=== PATIENT | male | born 1940 | race Caucasian/White ===

== ENCOUNTER → 2017-10-13 11:59 | Outpatient (CLI) | payer MEDICARE, OTHER, SELFPAY ==
[2017-10-13 14:24] LABS: PSA,Total- Diagnostic 0.73 ng/mL (0.0-4.0)
== END ==
PROVIDERS: Family Provider Family Medicine; PCP Family Medicine; Visit Provider Urology
DX: C61 Malignant neoplasm of prostate (principal)
CPT/HCPCS: 36415; 84153

== ENCOUNTER → 2018-04-22 12:33 | Outpatient (CLI) | payer MEDICARE, OTHER, SELFPAY ==
[2018-04-22 14:09] LABS: PSA,Total- Diagnostic 0.69 ng/mL (0.0-4.0)
== END ==
PROVIDERS: Family Provider Family Medicine; PCP Family Medicine; Referring Provider Urology; Visit Provider Urology
DX: C61 Malignant neoplasm of prostate (principal)
CPT/HCPCS: 36415; 84153

== ENCOUNTER → 2018-09-16 | Outpatient (CLI) | payer MEDICARE, OTHER, SELFPAY ==
[2018-09-16 08:33] VITALS: BMI 29.2
--- NOTE | 2018-09-16 08:43 | RAD_ITS ---
STUDY: X-RAY - RIGHT SHOULDER REASON FOR EXAM: Male, 78 years old. Shoulder joint pain after pulling lawnmower starter. TECHNIQUE: 3 view(s) of the shoulder. COMPARISON: None. FINDINGS: Normal glenohumeral articulation. Normal acromioclavicular joint. Normal acromion. Normal humeral head and visualized proximal humerus. The soft tissue structures are unremarkable. Normal visualized pulmonary apex. RAD/Shoulder min 2 Views IMPRESSION: Normal x-ray examination of the right shoulder. Electronically Signed: Sanchez Hernandez MD at 16:02 EDT , Service support ,
== END | disposition home or self-care (01) ==
PROVIDERS: Family Provider Family Medicine; PCP Family Medicine; Referring Provider Orthopaedic Surgery; Visit Provider Orthopaedic Surgery
DX: S49.91XA Unspecified injury of right shoulder and upper arm, initial encounter (principal)
CPT/HCPCS: 73030

== ENCOUNTER 2018-10-14 09:00 | Outpatient (RCR) | payer MEDICARE, OTHER, SELFPAY ==
[2018-09-16 08:33] VITALS: BMI 29.2
--- NOTE | 2018-09-25 12:55 | HP.PTEVAL ---
Patient's Visit Information SEGUNDO LORD is a 78 year old M referred to Physical Therapy by Vickey Brar DO with a diagnosis of RTC STRAIN RIGHT SHOULDER. Date of Evaluation: 09/25/18 Physical Therapist: Aleksandar Lyon PT, Cert MDT, OCS - Visit Plan Frequency: 1-2x /Week Duration: 3 Weeks Plan: RECHECK HEP 3 WEEKS. INTERVETIONS RTC/SCAPULAR STRENGTHENING,HEP AND APPROPRIATE GYM EX'S - Subjective Findings: This 78 y/o male presents to physical therapy with right RTC strain shoulder. 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 Patuinet felt some pain which progressively worse . Pateint seen DR Brar September 16 did x-rays and gave corizine injection helped pain. Global shoulder laterl/posterior deltoid. Patient affects ability with ADL'S ,OH abive 90 degrees and housework tasks. Pateint sleeping okay at night. Denies parathesia/tingling. Patient condition affects QOL and function. SOCAIL: marrie. VOCATION: retired - Pain Right Shoulder Pain Intensity (Out of 10): 1 Pain Intensity Range: 10 - Objective POSTURE: mild foward posture. PALAPTION: unremarkable. NEURO: intact. AROM: shoulder flexion/abduction 170 degrees,ER 90 degrees ,IR T6. MMT: RTC 4/5,deltoid 4/5 ,scapular 3+/5 - Special Tests R Shoulder Lift Off Test - Subscapular Tear: Negative R Shoulder Drop Sign - IS Test: Negative R Shoulder Empty Can - SS: Negative R Shoulder Neer - Impingement: Negative R Shoulder Eddy Fitz - Impingement: Negative - Goals Goal 1:: Independant with HEP Goal Time Frame: 2-4 Weeks Goal 2:: Patient to improve ability with ADL'S and housework tasks above 90 degrees for functio n. Goal Time Frame: 2-4 Weeks Goal 3:: Patient to improve shoulder dash disability score by 5 point to improve QOL. Goal Time Frame: 2-4 Weeks - Rehabilitation Potential Physical Therapy Diagnosis: This patient has right shoulder strain impairs function with OH activities. Rehabilitation Potential: Good - Anticipated Interventions Patient/Client Instruction: Educate patient on: Condition, Plan of Care For the Purpose of:: To decrease pain, To increase ROM, To improve muscle performance and motor function, To improve ability of physical actions for home/community/work/leisure, To increase flexibility/ROM, To improve ability to perform tasks related to life management Therapeutic Exercise to Include: Strength training, Postural training, Flexibilty training, Scapular Strength/Stabilization Comment: RTC For the Purpose of:: To decrease pain, To improve muscle performance and motor function, To improve ability to perform ADL's, To increase tolerance to activity/condition/position, To improve ability of physical actions for home/community/work/leisure, To decrease soft tissue restriction, To reduce risk of recurrence Thank you for the opportunity to evaluate your patient. For Medicare and Medicare HMO plans, please review the plan of care and approve it. It will need to be FAXED BACK to us at [phone] for Medicare purposes. For Medicare only, by signing this I certify the plan of care. Please let me know if there are questions or concerns regarding this plan of care. Physician Signature: Date:
--- NOTE | 2018-12-16 15:29 | HP.PTDCSUM ---
HP - PT D/C Summary It has been my pleasure to treat SEGUNDO LORD under orders from Vickey Brar DO, for the diagnosis of RTC STRAIN RIGHT SHOULDER for a total of 2 visit(s). Discharge Date: 10/14/18 Please see the following information for a summary of their discharge status. - Subjective Subjective: Slight soreness ,but doing good - Pain Right Shoulder Pain Intensity (Out of 10): 1 - Overall Improvement % Improvement: 90 - Objective Objective/Function: AROM :Shoulder flexion 160/abd 160. MMT: RTC 4/5,DELTOIS 4/5 - Goals Goal 1:: Independant with HEP Goal Progress: Goal Met Goal 2:: Patient to improve ability with ADL'S and housework tasks above 90 degrees for functio n. Goal Progress: Goal Met Goal 3:: Patient to improve shoulder dash disability score by 5 point to improve QOL. Goal Progress: Goal Met Goal Progress: Goal Met Goal Progress: Goal Met - Plan Plan: D/C TO HOME - D/C Information If there are questions or concerns regarding this patient's physical therapy, please feel free to call me at [phone]. Thank you for the referral of this patient. Sincerely, Aleksandar Lyon, PT, Cert MDT, OCS
== END 2018-10-14 19:00 | disposition home or self-care (01) ==
LOC: PT 09:00
PROVIDERS: Family Provider Family Medicine; PCP Family Medicine; Referring Provider Orthopaedic Surgery; Visit Provider Orthopaedic Surgery
DX: S46.011D Strain of muscle(s) and tendon(s) of the rotator cuff of right shoulder, subsequent encounter (principal)
CPT/HCPCS: 97110; 97162

== ENCOUNTER → 2018-10-19 | Outpatient (CLI) | payer MEDICARE, OTHER, SELFPAY ==
[2018-09-16 08:33] VITALS: BMI 29.2
[2018-10-19 12:47] LABS: PSA,Total- Diagnostic 0.72 ng/mL (0.0-4.0)
== END | disposition home or self-care (01) ==
LOC: MTLAB 09:53
PROVIDERS: Family Provider Family Medicine; PCP Family Medicine; Referring Provider Urology; Visit Provider Urology
DX: C61 Malignant neoplasm of prostate (principal)
CPT/HCPCS: 36415; 84153

== ENCOUNTER 2019-02-09 21:04 | Emergency (ER) | payer MEDICARE, OTHER, SELFPAY ==
[2018-09-16 08:33] VITALS: BMI 29.2
[2019-02-09 21:05] VITALS: BP 147/87; PULSE 59; RESP 17; TEMP 36.3; O2SAT 94; BMI 30.1
--- NOTE | 2019-02-09 21:13 | EKG12_ITS ---
Test Reason : DYSRHYTHMIA Blood Pressure : / mmHG Vent. Rate : 053 BPM Atrial Rate : 237 BPM P-R Int : 000 ms QRS Dur : 126 ms QT Int : 436 ms P-R-T Axes : 085 -12 138 degrees QTc Int : 409 ms Atrial flutter with variable A-V block with premature ventricular or aberrantly conducted complexes Non-specific intra-ventricular conduction block T wave abnormality, consider lateral ischemia Abnormal ECG Confirmed by STEWART REYES, RUDDY ([id number]), publication editor NELL TAVAREZ ([id number]) on 02/10/2019 11:07:58 AM Referred By: JORDANA Confirmed By:RUDDY WILLIAM MD
[2019-02-09 21:27] LABS: Absolute Lymphocyte Count 0.83 X10^3/uL (0.83-4.51); Basophil# 0.03 X10^3/uL; Basophil% 0.5 % (0-1); Eosinophil# 0.13 X10^3/uL; Eosinophils% 2.3 % (0-5); Hematocrit 45.7 % (40-54); Hemoglobin 15.1 g/dL (13.0-16.5); Lymphocyte # 0.83 X10^3/ul (4.0); Lymphocyte % 14.8 % (19-41); Mean Corpuscular Hgb 30.3 pg (27.0-32.0); Mean Corpuscular Volume 91.6 fL (80-94); Mean Platelet Vol. 9.4 fl (6.2-12.0); Monocyte# 0.53 X10^3/uL; Monocyte% 9.5 % (0-10); NRBC Flagged by Analyzer 0 % (0-5); Neutrophil # 4.04 X10^3/uL (2.7-7.7); Neutrophil % 72.4 % (47-70); Platelet Count 201 K/mm3 (150-450); RBC Distribution Width CV 13.4 % (11.6-14.6); RBC Distribution Width SD 44.6 fl (35.1-43.9); Red Blood Count 4.99 M/mm3 (4.6-6.2); White Blood Count 5.6 K/mm3 (4.4-11.0)
[2019-02-09 21:35] VITALS: BP 156/75; BP 159/80; BP 164/78; PULSE 58; PULSE 69; PULSE 89
[2019-02-09 21:35] LABS: International Normalized Ratio 2.4; Prothrombin Time (Protime)PT. 26.1 SECONDS (11.7-14.9)
--- NOTE | 2019-02-09 21:35 | RAD_ITS ---
STUDY: X-RAY CHEST REASON FOR EXAM: Male, 79 years old. Short of breath TECHNIQUE: AP portable COMPARISON: June 15, 2015 FINDINGS: There is minor subsegmental atelectasis or scarring in left lower lobe.. There is no demonstrated pleural abnormality. Postop changes status post median sternotomy and CABG. Normal size heart. Normal mediastinum and cheikh. Normal visualized pulmonary arteries. Tortuous mildly calcified aortic arch and descending thoracic aorta. Dorsal spine demonstrates degenerative change. Normal visualized ribs, clavicles, and shoulders. There is no demonstrated abnormality of the visualized soft tissue structures of the upper abdomen. No significant change since prior exam RAD/Chest 1 View (Portable) IMPRESSION: ASHD. No acute cardiopulmonary pathology Electronically Signed: Ashvin Hogan MD at 22:03 EST , Service support ,
[2019-02-09] MEDS: 0.9% Normal Saline 1,000 ML 1000 ML IV (21:38)
--- NOTE | 2019-02-09 21:49 | EKG12_ITS ---
Test Reason : DYSRHYTHMIA Blood Pressure : / mmHG Vent. Rate : 059 BPM Atrial Rate : 234 BPM P-R Int : 000 ms QRS Dur : 130 ms QT Int : 432 ms P-R-T Axes : 265 -15 158 degrees QTc Int : 427 ms Atrial flutter with variable A-V block with premature ventricular or aberrantly conducted complexes Non-specific intra-ventricular conduction block T wave abnormality, consider inferolateral ischemia Abnormal ECG Confirmed by STEWART REYES, RUDDY ([id number]), video effects editor NELL TAVAREZ ([id number]) on 02/10/2019 11:22:26 AM Referred By: JORDANA Confirmed By:RUDDY WILLIAM MD
[2019-02-09 21:50] LABS: ALB/GLOB Ratio 1.2 RATIO (0.9-2.4); AST(SGOT) 20 U/L (15-37); Alanine Aminotransfer ALT/SGPT 27 U/L (16-61); Albumin, Serum 3.7 g/dL (3.2-5.0); Alkaline Phosphatase 91 U/L (45-117); Anion Gap 5 (5-15); BUN 23 mg/dL (7-18); BUN/Creat Ratio 19.7 RATIO (10-20); Calcium,Total 8.4 mg/dL (8.5-10.1); Chloride 112 mmol/L (98-107); Creatinine, Serum 1.17 mg/dL (0.70-1.30); EST Glomerular Filtration Rate 64 mL/min (>60); Est Glom Filt Rate - Afr Amer 78 mL/min (>60); Estimated Creatinine Clearance 53.73 ml/min; Globulin 3.1 g/dL (2.2-4.2); Glucose 141 mg/dL (74-106); Potassium 4.1 mmol/L (3.5-5.1); Protein, Total 6.8 g/dL (6.4-8.2); Sodium Level 142 mmol/L (136-145)
--- NOTE | 2019-02-09 21:54 | ED.DCSUM_ITS ---
History of Present Illness Chief Complaint: Dizziness Informant: Patient Onset: Today Context: Gradual Onset Timing: Intermittent Current Severity: Mild Maximum Severity: Mild Narrative: The patient is a 79-year-old male with history of coronary vascular disease status post CABG, chronic atrial flutter who is on Coumadin, and hypertension who presents to the emergency department with wooziness. Patient states he was in his normal state of health. He states he felt mildly lightheaded and felt like he cannot get his pulse in his wrist. He states normally he can. He denies chest pain or shortness of breath. He did not feel like he was going to pass out. He is not nauseated. He denies any exertional dyspnea or exertional chest pain. He states he is been compliant with all of his medications. He is otherwise been in his normal state of health. Prior similar symptoms: No Recent Illness/Hospitalization: No Past Medical History - Allergies and Home Meds Allergies/Adverse Reactions: Allergies Sulfa (Sulfonamide Antibiotics) Allergy (Verified 02/09/19 21:04) Rash Primary Care Physician: Grabiel Rosen MD [Primary Care Provider] - Prior records reviewed: Yes Past Medical History: - - Atrial flutter, coronary vascular disease Surgical History: coronary bypass surgery Smoking Status: Never smoker - Family History Maternal Family History: Reports: No pertinent history Review of Systems General: Denies: Chills, Fever, Sweats Eyes: Denies: Visual changes - bilaterally, Diplopia ENT: Denies: Rhinorrhea, Sore throat Cardiovascular: Denies: Chest pain, Palpitations Respiratory: Denies: Dyspnea, Cough, Dyspnea on exertion Gastrointestinal: Denies: Abdominal pain, Nausea, Vomiting, Diarrhea, Melena, Hematochezia Genitourinary: Denies: Dysuria, Hematuria, Frequency Musculoskeletal: Denies: Back pain, Extremity Pain Skin: Denies: Rash, Wounds Neurological: Denies: Headache, Weakness, Numbness Physical Exam Vital Signs/Narrative: Vital Signs Temp Pulse Pulse Pulse Pulse Resp BP 02/09/19 21:35 58 L 89 69 02/09/19 21:05 97.3 F L 59 L 17 147/87 H BP BP BP Pulse Ox 02/09/19 21:35 156/75 H 164/78 H 159/80 H 02/09/19 21:05 94 Inital Vital Signs reviewed: Yes General: Well nourished, Well developed, No Acute Distress Head: Normocephalic, Atraumatic Eyes: Perrl, EOMI ENT: Moist mucous membranes, No rhinorrhea Neck: Supple, Nontender Cardiovascular: Regular rate, Regular rhythm, No murmurs Respiratory: No distress, CTA bilaterally, Chest nontender Abdomen: Soft, Nontender, Nondistended, Normal bowel sounds Back: Nontender, Normal Inspection Extremities: Nontender, No edema Skin: Normal color, No rash Neurological: Alert, Oriented x3, Cranial nerves II-XII grossly intact, Normal Strength, Normal Sensation Psychological: Normal affect, Normal Mood Diagnostic/Tx/Re-eval Clinical Impression(s) from Imaging Studies Chest X-Ray 02/09/19 21:35 IMPRESSION: ASHD. No acute cardiopulmonary pathology Electronically Signed: Ashvin Hogan MD at 22:03 EST , Service support , Abnormal Lab Results 02/09/19 02/09/19 21:20 21:20 WBC 5.6 RBC 4.99 Hgb 15.1 Hct 45.7 MCV 91.6 MCH 30.3 MCHC 33.0 RDW Std Deviation 44.6 H RDW Coeff of Brenden 13.4 Plt Count 201 MPV 9.4 Immature Gran % (Auto) 0.500 Neut % (Auto) 72.4 H Lymph % (Auto) 14.8 L [place] % (Auto) 9.5 Eos % (Auto) 2.3 Baso % (Auto) 0.5 Absolute Neuts (auto) 4.0 Absolute Lymphs (auto) 0.83 Nucleated RBC % 0 Sodium 142 Potassium 4.1 Chloride 112 H Carbon Dioxide 25.0 Anion Gap 5 BUN 23 H Creatinine 1.17 Estim Creat Clear Calc 53.73 Est GFR (MDRD) Af Amer 78 Est GFR (MDRD) Non-Af 64 BUN/Creatinine Ratio 19.7 Glucose 141 H Calcium 8.4 L Total Bilirubin 0.30 AST 20 ALT 27 Alkaline Phosphatase 91 Total Protein 6.8 Albumin 3.7 Globulin 3.1 Albumin/Globulin Ratio 1.2 - Rhythm Strip Rhythm Strip: Flutter Rate: 50 Ectopy: PVC(s) - EKG Initial EKG Interpretation: No Acute Injury Pattern, Atrial Flutter Prior: Unchanged - Medical Decision Making The patient presents to the emergency department with wooziness. He states that he was concerned because he cannot feel his pulse. I asked him to take his pulse and his radial wrist. He states that he felt back to normal. The patient does have a history of atrial flutter with intermittent conduction. He thinks that he is in it all the time, but he was actually admitted in 2016 because he was bradycardic. He was transferred to [facility], but with medication titration he was discharged home without a pacemaker. He came back a month later and had cardioversion states he has been doing fine since. He does follow with cardiology at [place]. He denies any recent medication changes. 2 EKGs were completed which showed atrial flutter with intermittent conduction. This does appear similar to his prior EKGs both here and through the [facility] system. He is not bradycardic. He is not hypotensive. I do not feel like this is the cause of his symptoms. With a small bolus of fluids, the patient states he feels back to normal. His chest x-ray does not show significant volume overload. Lab work is otherwise unremarkable. He ambulated without any bradycardia or lightheadedness. At this point, I do not suspect a dangerous cause of his symptoms. I do feel that he is safe for outpatient follow-up. Impression 1. Lightheadedness-resolved ED Disposition - Plan for ED Patient: Instructions: DIZZINESS, Unk Cause Referrals: Grabiel Rosen MD [Primary Care Provider] -
[2019-02-09 22:45] VITALS: BP 140/78; PULSE 50; RESP 17; O2SAT 94
== END 2019-02-09 22:46 | disposition home or self-care (01) ==
LOC: ED 21:25
PROVIDERS: Emergency Provider Emergency Medicine; Family Provider Family Medicine; PCP Family Medicine
DX: R42 Dizziness and giddiness (principal); I49.3 Ventricular premature depolarization; I48.92 Unspecified atrial flutter; I25.10 Atherosclerotic heart disease of native coronary artery without angina pectoris; I10 Essential (primary) hypertension; Z95.1 Presence of aortocoronary bypass graft; Z79.01 Long term (current) use of anticoagulants; Z79.899 Other long term (current) drug therapy
CPT/HCPCS: 71045; 80053; 85025; 85610; 93005; 96360; 99285; A4216

== ENCOUNTER → 2019-04-22 09:50 | Outpatient (CLI) | payer MEDICARE, OTHER, SELFPAY ==
[2019-04-22 12:55] LABS: PSA,Total- Diagnostic 0.53 ng/mL (0.0-4.0)
== END ==
PROVIDERS: PCP Family Medicine; Referring Provider Urology; Visit Provider Urology
DX: R97.20 Elevated prostate specific antigen [PSA] (principal)
CPT/HCPCS: 36415; 84153

== ENCOUNTER → 2020-05-08 08:22 | Outpatient (CLI) | payer MEDICARE, OTHER, SELFPAY ==
[2020-05-08 10:33] LABS: PSA,Total- Diagnostic 0.82 ng/mL (0.0-4.0)
== END ==
PROVIDERS: PCP Family Medicine; Referring Provider Urology; Visit Provider Urology
DX: C61 Malignant neoplasm of prostate (principal)
CPT/HCPCS: 36415; 84153

== ENCOUNTER 2020-09-27 10:23 | Emergency (ER) | payer MEDICARE, OTHER, SELFPAY ==
[2020-09-27] VITALS (8 sets, daily range): BP systolic 115–131; BP diastolic 55–64; PULSE 40–61; RESP 12–169; TEMP 35.6–36.1; O2SAT 91–98; BMI 28.9
--- NOTE | 2020-09-27 10:26 | EKG12_ITS ---
Test Reason : Blood Pressure : / mmHG Vent. Rate : 054 BPM Atrial Rate : 081 BPM P-R Int : 000 ms QRS Dur : 130 ms QT Int : 470 ms P-R-T Axes : 012 010 111 degrees QTc Int : 445 ms Sinus rhythm with 2nd degree A-V block (Mobitz I) Non-specific intra-ventricular conduction block T wave abnormality, consider lateral ischemia Abnormal ECG Confirmed by KATHY REYES, RITIKA ([id number]), purchase request editor MATTHEW ESCALONA ([id number]) on 10/02/2020 8:55:40 AM Referred By: DANITA Confirmed By:THOMAS CHAVEZ MD
--- NOTE | 2020-09-27 10:28 | EKG12_ITS ---
Test Reason : POST ARREST Blood Pressure : / mmHG Vent. Rate : 063 BPM Atrial Rate : 081 BPM P-R Int : 000 ms QRS Dur : 130 ms QT Int : 418 ms P-R-T Axes : 039 019 113 degrees QTc Int : 427 ms Sinus rhythm with 2nd degree A-V block (Mobitz I) Non-specific intra-ventricular conduction block Nonspecific ST-T changes Abnormal ECG Confirmed by KATHY REYES, RITIKA ([id number]), newspaper editor MATTHEW ESCALONA ([id number]) on 10/02/2020 8:56:44 AM Referred By: DANITA Confirmed By:THOMAS CHAVEZ MD
--- NOTE | 2020-09-27 10:29 | EX.ED.CRITCA ---
HPI History of Present Illness Chief Complaint: CPR Informant: patient and EMS Limited: other (Pain recalls sitting on a weight machine and then did not feel well.) Onset/Context/Timing Onset: Hours Context: Sudden Onset Timing: Intermittent Quality: Unresponsive with shockable rhythm Location: [facility] Mechanism/Context: Yes other Current Severity: Gone Maximum Severity: Severe Worsened by: Unknown Relieved by: Cardioversion/defibrillation Associated Symptoms Associated Symptoms: abdominal pain, chest pain and chills Length of loss of consciousness: Unknown Narrative Narrative: Patient is an elderly male with history of coronary disease status post three-vessel bypass surgery 20 years ago and history of hypertension, hypercholesterolemia and atrial flutter. He is on Coumadin. Patient states he was at [facility] working out. He works out every day on his own. He states he didn't feel well and he has no other recall. Workers at [facility] initiated protocol for unresponsive patient. Defibrillator was applied. Defibrillator interpret his rhythm and recommended that he be shocked. Upon arrival he is alert oriented with no complaints other than being sweaty. He denies history of PE or DVT. He denies leg pain, swelling discoloration. He has no risk factors for pulmonary embolus. Prior similar symptoms: No Recent Illness/Hospitalization: No PFSH PFS Medical History (Updated 09/27/20 @ 11:[address] Tereso Sauceda MD) Coronary artery disease Hypertension Hypertension Myocardial infarct Home Medications amlodipine 10 mg PO DAILY 06/15/15 [History Last Taken Unknown] atorvastatin 40 mg PO QHS 06/15/15 [History Last Taken Unknown] cholecalciferol (vitamin D3) 2,000 unit PO DAILY 06/15/15 [History Last Taken Unknown] isosorbide mononitrate 30 mg PO BID 06/15/15 [History Last Taken Unknown] lisinopril 40 mg PO DAILY 06/15/15 [History Last Taken Unknown] warfarin 10 mg tablet 10 mg PO SUTUWETHSA tab 09/16/18 [History Last Taken Unknown] warfarin 5 mg PO MOFR 09/27/20 [History Last Taken Unknown] Allergy/AdvReac Type Severity Reaction Status Date / Time Sulfa (Sulfonamide Allergy Rash Verified 09/27/20 10:50 Antibiotics) Social History (Updated 09/27/20 @ 10:[address] Tereso Sauceda MD) household members: none Smoking Status: Never smoker alcohol intake: current alcohol intake frequency: holidays/special occasions only substance use type: does not use ROS ROS ED Constitutional Constitutional ED: Denies chills, fever(s), subjective or sweats Eyes Eyes: Denies blurry vision or change in vision ENT ENT ED: Denies ear pain, rhinorrhea or sore throat Cardiovascular Cardiovascular: Denies chest pain, orthopnea, palpitations, paroxysmal nocturnal dyspnea or racing heartbeat Respiratory/Chest Respiratory/Chest: Denies cough, dyspnea, dyspnea on exertion, orthopnea or paroxysmal nocturnal dyspnea Gastrointestinal Gastrointestinal: Denies abdominal pain, constipation, diarrhea, melena, nausea or vomiting Genitourinary Genitourinary ED: Denies dysuria, hematuria or urinary frequency Musculoskeletal Musculoskeletal: Denies arthralgias, back pain, myalgias or neck pain Integumentary Denies Abrasions or rash Neurologic Neurologic: Denies headache(s) or weakness Endocrine Endocrinology: Denies polydipsia, polyphagia or polyuria Hematologic/Lymphatic Hematologic/Lymphatic: Reports easy bruising; Denies easy bleeding EXAM Physical Exam Const Vital Signs: 09/27/20 10:24 09/27/20 10:39 09/27/20 10:50 Temperature 96.0 F L Temperature Source Temporal Pulse Rate 61 Respiratory Rate 12 Respiratory Effort Non-Labored Respiratory Pattern Normal Blood Pressure 131/64 H Blood Pressure Mean 86 Pulse Ox 98 94 Oxygen Delivery Method Room Air Room Air Positive well nourished and well developed General Appearance ED: well developed; Negative for pallor HEENT HEENT Narrative: Ears normal. Nares patent with no discharge. Posterior pharynx unremarkable. normocephalic and atraumatic; Negative for cyanosis of lips/distal nose Eyes PERRL and EOMs intact bilaterally General Eye ED: Negative for pale conjunctiva or scleral icterus Neck full ROM, no lymphadenopathy and no JVD Lymph Lymphatic Narrative: Negative Chest Wall Chest Narrative: Normal in appearance and no pain to palpation Resp Resp Narrative: Breath sounds noted bilaterally with good movement of air and no rales, rhonchi or wheezing. Cardio regular rhythm, S1 normal heart sound, S2 normal heart sound and no murmurs Cardio Narrative: Patient has a regular rhythm due to premature unifocal premature ventricular beats and he has evidence of Mobitz type I second-degree heart block. Palpation: normal PMI Peripheral Pulses: pulses 2+ throughout GI non-tender, non-distended and no masses Auscultation: normoactive bowel sounds Palpation: soft Narrative: External genitalia normal. Back/Spine no CVA tenderness Cervical Spine: Negative for cervical spine tenderness Lumbar Spine / Lower Back: Negative for lumbar spinal tenderness Neuro oriented x3, CN's II-XII intact bilaterally and no sensory deficits noted Sensorium / Orientation: alert Motor Exam: strength 5/5 throughout Psych mental status grossly normal Skin Skin Narrative: Patient is diaphoretic. General Skin Exam: Negative for jaundice or pallor Lesions: no lesions Rashes: no rashes MDM MDM MDM Narrative Medical decision making narrative: Cardiology was contacted in light of patient's presentation and history. Dr. Slater recommended contacting [facility] where he has an established relationship to see if they have beds. He probably will need a cardiac cath and if negative an EP study. Patient was excepted by medical engineer at [facility]. He is to be transferred from ER to cardiovascular ICU. They requested a rapid Covid. This was ordered. Since his INR is not less than 2 he was not anticoagulated with heparin. Lab Data Attestation: I reviewed the patient's lab results. Labs: Laboratory Results - last 24 hr 09/27/20 09/27/20 10:30 10:30 PT 21.9 H INR 2.0 APTT 32.4 Sodium 140 Potassium 3.6 Chloride 108 H Carbon Dioxide 25.0 Anion Gap 7 BUN 17 Creatinine 0.97 Estim Creat Clear Calc 65.77 Est GFR (MDRD) Af Amer 96 Est GFR (MDRD) Non-Af 80 BUN/Creatinine Ratio 17.6 Glucose 118 H Calcium 8.6 Magnesium 2.0 Troponin I High Sens 157.6 H* Radiography Chest X-Ray - ED: 1 View, Heart, Lungs, Mediastinum, Bony Structures, No Acute Disease and Chronic Changes EKG Initial EKG: Interpretation: Sinus Rhythm (Ventricular rate is 63. Patient has a second-degree AV block Mobitz type I. QRS duration 130 ms and reveals a nonspecific intraventricular conduction delay. QT intervals 418 ms. [place] is normal. There is artifact. Second EKG was obtained and reveals first-degree AV block per however ) Follow-up EKG: Attestation: I personally reviewed and interpreted this EKG as follows: Interpretation: Sinus Rhythm (Sinus rhythm with a Mobitz type I secondary heart block. Ventricular rate is 70. QRS duration 120 ms. QS duration 4 to 24 ms. [place] is normal. There is ischemic changes in the anterior leads suggestive of a circumflex vessel lesion. Will obtain third EKG.) Critical Care Time Critical care time (excluding procedures): 30-74 minutes (Time 34 minutes), Including time spent: (Obtaining history from squad and patient, performing physical exam, documentation, review of prior records, discussion with medical engineer at [facility], Dr. Tapan Slater. Discussion with nurse for [facility] transfer line as well as medical engineer.), Discussing w/Patient &/or Family/Centrifuge Separator Tender, Discussing w/Consultants and Arranging Admission or Transfer Discharge Plan Triage Chief Complaint: CPR ED Provider: Tereso Sauceda Dx/Rx/DC Orders Clinical Impression: Cardiopulmonary arrest with successful resuscitation, ACS (acute coronary syndrome), Anticoagulant long-term use Prescriptions: No Action warfarin [Coumadin] 10 mg tablet 10 mg PO SUTUWETHSA RF: 0 atorvastatin 40 MG tablet 40 mg PO QHS RF: 0 isosorbide mononitrate 30 MG tablet extended release 24 hr 30 mg PO BID RF: 0 amlodipine 10 MG tablet 10 mg PO DAILY RF: 0 lisinopril 40 MG tablet 40 mg PO DAILY RF: 0 cholecalciferol (vitamin D3) 1,000 UNIT tablet 2,000 unit PO DAILY RF: 0 warfarin 5 mg Tablet 5 mg PO MOFR RF: 0 Primary Care Provider: Grabiel Rosen Referrals: Grabiel Rosen MD [Primary Care Provider] - Disposition Disposition: Acute Care Hospital Discharge Location: [facility]
--- NOTE | 2020-09-27 10:41 | ED.RN ---
External pacer pads applied to pt, external pacing not initiated at this time.
[2020-09-27] MEDS: Aspirin 81 MG TAB.CHEW 324 MG PO (10:43)
--- NOTE | 2020-09-27 10:50 | EKG12_ITS ---
Test Reason : POST-ARREST Blood Pressure : / mmHG Vent. Rate : 070 BPM Atrial Rate : 082 BPM P-R Int : 248 ms QRS Dur : 128 ms QT Int : 424 ms P-R-T Axes : 078 018 109 degrees QTc Int : 457 ms Sinus rhythm with 1st degree A-V block with Premature atrial complexes with Aberrant conduction with ventricular escape complexes Non-specific intra-ventricular conduction block T wave abnormality, consider lateral ischemia Abnormal ECG Confirmed by KATHY REYES, RITIKA ([id number]), video news editor MATTHEW ESCALONA ([id number]) on 10/02/2020 8:56:12 AM Referred By: DANITA Confirmed By:THOMAS CHAVEZ MD
[2020-09-27 10:52] LABS: Prothrombin Time (Protime)PT. 21.9 SECONDS (11.7-14.9)
[2020-09-27 10:53] LABS: Partial Thromboplast Time 32.4 Seconds (24.1-36.2)
--- NOTE | 2020-09-27 11:00 | RAD_ITS ---
STUDY: X-RAY CHEST REASON FOR EXAM: Male, 80 years old. Chest pain TECHNIQUE: Single AP portable view of the chest. COMPARISON: Comparison is made with prior study dated 02/09/2019. FINDINGS: EKG electrodes are seen. Elevation of the right hemidiaphragm. Stable mild increased markings at the lung is probably atelectasis and/or scarring. There is no demonstrated pleural abnormality. Sternal cerclage wires and vascular clips are present from a prior sternotomy and coronary artery bypass graft procedure (CABG). Normal mediastinum and cheikh. Normal visualized pulmonary arteries. There is atherosclerotic calcification of the aortic arch with tortuosity. There are diffuse degenerative changes of the visualized thoracic spine. Normal visualized ribs, clavicles, and shoulders. There is no demonstrated abnormality of the visualized soft tissue structures of the upper abdomen. RAD/Chest 1 View (Portable) IMPRESSION: Stable mild increased markings at the left lung base suggestive of either atelectasis and/or scarring. Electronically Signed: Siva Malik MD at 11:22 EDT , Service support ,
[2020-09-27 11:05] LABS: Anion Gap 7 (5-15); BUN 17 mg/dL (7-18); BUN/Creat Ratio 17.6 RATIO (10-20); Calcium,Total 8.6 mg/dL (8.5-10.1); Chloride 108 mmol/L (98-107); Creatinine, Serum 0.97 mg/dL (0.70-1.30); EST Glomerular Filtration Rate 80 mL/min (>60); Est Glom Filt Rate - Afr Amer 96 mL/min (>60); Estimated Creatinine Clearance 65.77 ml/min; Glucose 118 mg/dL (74-106); Potassium 3.6 mmol/L (3.5-5.1); Sodium Level 140 mmol/L (136-145); Troponin-I HS 157.6 pg/mL (3.0-78.5)
[2020-09-27 11:12] LABS: Absolute Lymphocyte Count 2.35 X10^3/uL (0.83-4.51); Absolute Neutrophil Count 6.2 X10^3/uL (2.0-7.7); Basophil# 0.07 X10^3/uL; Basophil% 0.7 % (0-1); Eosinophil# 0.14 X10^3/uL; Eosinophils% 1.5 % (0-5); Hemoglobin 15.1 g/dL (13.0-16.5); Lymphocyte # 2.35 X10^3/ul (0.83-4.51); Lymphocyte % 24.5 % (19-41); Mean Corp Hgb Conc 32.1 g/dL (32-36); Mean Corpuscular Hgb 28.8 pg (27.0-32.0); Mean Corpuscular Volume 89.5 fL (80-94); Mean Platelet Vol. 9.3 fl (6.2-12.0); Monocyte# 0.76 X10^3/uL; Monocyte% 7.9 % (0-10); NRBC Flagged by Analyzer 0 % (0-5); Neutrophil # 6.16 X10^3/uL (2.7-7.7); Neutrophil % 64.1 % (47-70); Platelet Count 315 K/mm3 (150-450); RBC Distribution Width CV 14.4 % (11.6-14.6); RBC Distribution Width SD 46.9 fl (35.1-43.9); Red Blood Count 5.25 M/mm3 (4.6-6.2); White Blood Count 9.6 K/mm3 (4.4-11.0)
--- NOTE | 2020-09-27 12:49 | PCM.PN.BLA ---
Progress Note 80-year-old male with past medical history of coronary artery disease status post CABG around 20 years back, following with [facility] brought emergently to the emergency room after syncopal episode when he was working out at [employer]. AED was used on the patient and apparently he had a shockable rhythm. Patient is asymptomatic at this time and denies any chest pain prior to this event as well. Patient has history of a flutter and is on Coumadin. His EKG showed sinus rhythm with type I second-degree AV block. His potassium is 3.6. At this time he does not need emergent coronary angiography. He will likely need coronary angiography at some point during this admission. If we can wait for patient's INR to be less than 1.6 then it will be ideal. Full consult to follow.
== END 2020-09-27 13:12 | disposition short-term general hospital (02) ==
PROVIDERS: Emergency Provider Emergency Medicine; PCP Family Medicine
DX: I46.9 Cardiac arrest, cause unspecified (principal); I24.9 Acute ischemic heart disease, unspecified; I25.10 Atherosclerotic heart disease of native coronary artery without angina pectoris; I25.2 Old myocardial infarction; E78.00 Pure hypercholesterolemia, unspecified; I10 Essential (primary) hypertension; Z95.1 Presence of aortocoronary bypass graft; Z79.01 Long term (current) use of anticoagulants; Z79.899 Other long term (current) drug therapy
CPT/HCPCS: 71045; 80048; 83735; 84484; 85025; 85610; 85730; 87426; 93005; 99285; A4216

== ENCOUNTER 2021-01-12 09:46 | Emergency (ER) | payer MEDICARE, OTHER, SELFPAY ==
[2021-01-12 09:48] VITALS: BP 181/80; PULSE 70; RESP 14; TEMP 36.1; O2SAT 96; BMI 25.9
--- NOTE | 2021-01-12 09:56 | EDS_ITS ---
HPI History of Present Illness Chief Complaint: Nosebleed Informant: patient Onset/Context/Timing Onset: Today Context: Sudden Onset Current Severity: Mild Maximum Severity: Moderate Narrative Narrative: Patient presents with left-sided nosebleed. Patient states he was out for a walk this morning when his nose suddenly started bleeding. No trauma no recent URI symptoms. Patient is currently on Eliquis and Plavix. [facility] Medical History Coronary artery disease Hypertension Hypertension Myocardial infarct Home Medications amlodipine 10 mg PO DAILY 06/15/15 [History Last Taken Unknown] atorvastatin 40 mg PO QHS 06/15/15 [History Last Taken Unknown] cholecalciferol (vitamin D3) 2,000 unit PO DAILY 06/15/15 [History Last Taken Unknown] isosorbide mononitrate 30 mg PO BID 06/15/15 [History Last Taken Unknown] lisinopril 40 mg PO DAILY 06/15/15 [History Last Taken Unknown] warfarin 10 mg tablet 10 mg PO SUTUWETHSA tab 09/16/18 [History Last Taken Unknown] warfarin 5 mg PO MOFR 09/27/20 [History Last Taken Unknown] cephalexin 500 mg PO Q12H 5 Days #10 cap 01/12/21 [Rx Last Taken Unknown] Allergy/AdvReac Type Severity Reaction Status Date / Time Sulfa (Sulfonamide Allergy Rash Verified 01/12/21 09:48 Antibiotics) Social History household members: none Smoking Status: Never smoker alcohol intake: current alcohol intake frequency: holidays/special occasions only substance use type: does not use ROS ROS ED Constitutional Constitutional ED: Denies chills or fever(s) Eyes Eyes: Denies change in vision ENT ENT ED: Reports other Details: Epistaxis left nare ; Denies sore throat Cardiovascular Cardiovascular: Denies chest pain Respiratory/Chest Respiratory/Chest: Denies cough or dyspnea Gastrointestinal Gastrointestinal: Denies abdominal pain, diarrhea, nausea or vomiting Genitourinary Genitourinary ED: Denies dysuria Musculoskeletal Musculoskeletal: Denies back pain Integumentary Denies rash Neurologic Neurologic: Denies headache(s) or weakness Allergic/Immunologic Allergic/Immunologic ED: Denies urticaria EXAM Physical Exam Const Vital Signs: 01/12/21 09:48 Temperature 96.9 F L Temperature Source Temporal Pulse Rate 70 Respiratory Rate 14 Blood Pressure 181/80 H Blood Pressure Mean 113 Pulse Ox 96 Oxygen Delivery Method Room Air Positive well nourished and well developed General Appearance ED: well developed HEENT HEENT Narrative: Epistaxis left nare Eyes PERRL and EOMs intact bilaterally Neck supple Chest Wall inspection of chest normal and palpation of chest normal Resp normal respiratory effort and clear to auscultation bilaterally Cardio regular rate and regular rhythm GI normal to inspection, nondistended, normoactive bowel sounds and non-tender Palpation: soft Extremity normal to inspection Neuro oriented x3 Sensorium / Orientation: alert Skin no rashes or lesions noted MDM MDM MDM Narrative Medical decision making narrative: Cottonball soaked in Cetacaine and Afrin was placed in the left nare. After approximately 5 minutes this was removed and a 5.5 cm anterior Rhino Rocket was placed. Treatment and Re-Evaluation Comments:: On repeat examination patient's had no further bleeding. We ambulated up and down the [place]val[place] with no problems. Patient will be given Keflex twice daily to help prevent infection. He is known to Dr. Lara and will follow up early next week. Discharge Plan Triage Chief Complaint: Nosebleed ED Provider: Prerna Pugh Dx/Rx/DC Orders Clinical Impression: Acute anterior epistaxis Instructions: ED Epistaxis (Adult) Prescriptions: New cephalexin 500 mg capsule 500 mg PO Q12H 5 Days Qty: 10 RF: 0 No Action warfarin [Coumadin] 10 mg tablet 10 mg PO SUTUWETHSA RF: 0 atorvastatin 40 MG tablet 40 mg PO QHS RF: 0 isosorbide mononitrate 30 MG tablet extended release 24 hr 30 mg PO BID RF: 0 amlodipine 10 MG tablet 10 mg PO DAILY RF: 0 lisinopril 40 MG tablet 40 mg PO DAILY RF: 0 cholecalciferol (vitamin D3) 1,000 UNIT tablet 2,000 unit PO DAILY RF: 0 warfarin 5 mg Tablet 5 mg PO MOFR RF: 0 Primary Care Provider: Grabiel Rosen Referrals: Grabiel Rosen MD [Primary Care Provider] -
[2021-01-12] MEDS: Oxymetazoline 0.05% 1 SPRAY SPRAY.BTL 2 SPRAY NASAL (10:17)
[2021-01-12] MEDS: Tetracaine/Benzocaine/Butamben 1 APPLIC TOPICAL (10:18)
[2021-01-12 11:42] VITALS: BP 152/81
== END 2021-01-12 11:43 | disposition home or self-care (01) ==
LOC: ED 10:43
PROVIDERS: Emergency Provider Emergency Medicine; PCP Family Medicine
DX: R04.0 Epistaxis (principal); I25.2 Old myocardial infarction; I25.10 Atherosclerotic heart disease of native coronary artery without angina pectoris; Z79.01 Long term (current) use of anticoagulants; Z79.02 Long term (current) use of antithrombotics/antiplatelets
CPT/HCPCS: 30901; 99282

== ENCOUNTER 2021-06-20 11:29 | Outpatient (CLI) | payer MEDICARE, OTHER, SELFPAY ==
[2021-06-20 15:41] LABS: PSA,Total - Annual Screen 0.74 ng/mL (0.00-4.00)
== END 2021-06-20 23:59 | disposition home or self-care (01) ==
PROVIDERS: PCP Family Medicine; Referring Provider Urology; Visit Provider Urology
DX: C61 Malignant neoplasm of prostate (principal); Z12.5 Encounter for screening for malignant neoplasm of prostate
CPT/HCPCS: 36415; 84153; G0103

== ENCOUNTER → 2022-05-06 | Outpatient (CLI) | payer MEDICARE, OTHER, SELFPAY ==
[2022-05-06 15:43] LABS: PSA,Total- Diagnostic 0.69 ng/mL (0.0-4.0)
== END | disposition home or self-care (01) ==
PROVIDERS: Visit Provider Urology
DX: Z85.46 Personal history of malignant neoplasm of prostate (principal)
CPT/HCPCS: 36415; 84153

== ENCOUNTER → 2025-02-07 | Outpatient (CLI) | payer MEDICARE, OTHER, SELFPAY ==
--- NOTE | 2025-02-07 11:04 | MRI_ITS ---
PROCEDURE: LOWER EXT JOINT ONLY (ROUTINE) 02/07/2025 REASON FOR EXAM: PAIN TECHNIQUE: Procedure Code: MRILEJ Modality: MR Procedure: LOWER EXT JOINT ONLY (ROUTINE) T1, T2, multiplanar and multisequence images were obtained of the left knee without IV contrast administration. COMPARISON: COMPARISON : None FINDINGS: Bone Marrow: There is no bony contusion or osteochondral defect. Cruciate ligaments. The anterior cruciate ligament shows edema throughout its course with attenuation, without laxity, grade 2 sprain. The posterior cruciate appears intact. Collateral ligaments: The medial collateral ligament appears intact. The lateral collateral ligament complex appears intact. Extensor compartment. There is moderate distal quadriceps tendinopathy without tear. The patellar tendon appears intact. Menisci: There is a horizontal tear in the posterior horn of the medial meniscus which extends to the femoral surface, sagittal T2 image 16/33. There is a horizontal tear in the body of the lateral meniscus which extends to the tibial surface. Effusion: There is no significant joint effusion. There is no Goldsmith's cyst. Cartilage: There is no significant chondromalacia MRI/Lower Ext Joint Only (Routine) IMPRESSION: The anterior cruciate ligament shows edema throughout its course with attenuati on, without laxity, grade 2 sprain. There is a horizontal tear in the posterior horn of the medial meniscus which e xtends to the femoral surface, sagittal T2 image 16/33. There is a horizontal tear in the body of the lateral meniscus which extends to the tibial surface. Reading Location: [facility]
[2025-02-07 11:31] VITALS: BP 135/61; PULSE 71; RESP 16; O2SAT 92
[2025-02-07 11:45] VITALS: BP 111/67; PULSE 84; RESP 16; O2SAT 94
[2025-02-07 12:00] VITALS: BP 123/69; PULSE 85; RESP 16; O2SAT 94
[2025-02-07 12:15] VITALS: BP 121/72; PULSE 84; RESP 16; O2SAT 93
[2025-02-07 12:24] VITALS: BP 162/73; PULSE 61; RESP 16; O2SAT 94
== END | disposition home or self-care (01) ==
LOC: MRI 10:54
PROVIDERS: Referring Provider Orthopaedic Surgery; Visit Provider Orthopaedic Surgery
DX: M17.12 Unilateral primary osteoarthritis, left knee (principal)
CPT/HCPCS: 73721